=== PATIENT | female | born 1940 | race Caucasian/White ===

== ENCOUNTER 2016-12-11 06:30 | Day surgery (SDC) | payer MEDICARE, BC ==
--- NOTE | ~2016-12-11 | EGD ---
EGD REPORT [facility] [address] [place]. [address] NAME: MITZY PEREZ : [birth year] STATUS : REG [facility] [place] PAT#: [id number] AGE: 76 ADM/REG DATE : 12/11/16 MR#: [id number] REPORT SERV DATE: 12/11/16 DICTATED BY: SANJAY CATES DATE: 12/11/16 REPORT STATUS : Draft TRANSCRIBED BY: [employer] DATE: 12/11/16 [facility] Patient Name: Mitzy Perez Date of : 1940 Attending MD: SANJAY CATES MD Procedure Date No Time: 12/11/2016 Procedure: Colonoscopy Indications: Clinically significant diarrhea of unexplained origin, Rectal bleeding, FH of Colonic Polyps - 1st degree relative Referring MD: HARPER MALONEY Medicines: as per anesthesia Complications: No immediate complications. Procedure: Pre-Anesthesia Assessment: - ASA Grade Assessment: II - A patient with mild systemic disease. After I obtained informed consent, the scope was passed under direct vision. Throughout the procedure, the patient's blood pressure, pulse, and oxygen saturations were monitored continuously. The PCF [id number] was introduced through the anus and advanced to the cecum, identified by appendiceal orifice and ileocecal valve. The colonoscopy was performed without difficulty. The patient tolerated the procedure. The quality of the bowel preparation was adequate to identify polyps. Findings: The perianal and digital rectal examinations were normal. Multiple small and large-mouthed diverticula were found in the sigmoid colon, in the descending colon, in the transverse colon and in the ascending colon. Internal hemorrhoids were found during endoscopy and were moderate. Four biopsies were obtained in the rectum and in the ascending colon with cold forceps for histology. Impression: - Diverticulosis in the sigmoid colon, in the descending colon, in the transverse colon and in the ascending colon. - Internal hemorrhoids. - Four biopsies were obtained in the rectum and in the ascending colon. Recommendation: - Await pathology results. Procedure Code(s): --- Professional --- EGD REPORT [facility] [address] [place]. [address] NAME: MITZY PEREZ : [birth year] STATUS : REG [facility]#: [id number] AGE: 76 ADM/REG DATE : 12/11/16 MR#: [id number] REPORT SERV DATE: 12/11/16 DICTATED BY: SANJAY CATES. DATE: 12/11/16 REPORT STATUS : Draft TRANSCRIBED BY: [employer] DATE: 12/11/16 47330, Colonoscopy, flexible, proximal to splenic flexure; with biopsy, single or multiple Diagnosis Code(s): --- Professional --- K64.8, Other hemorrhoids K57.30, Diverticulosis of large intestine without perforation or abscess without bleeding R19.7, Diarrhea, unspecified K62.5, Hemorrhage of anus and rectum Z83.71, Family history of colonic polyps CPT copyright 2013 [employer]. All rights reserved. The codes documented in this report are preliminary and upon certified medical coder review may be revised to meet current compliance requirements. SANJAY CATES MD 12/11/2016 10:08 AM This report has been signed electronically. Number of Addenda: 0 Note Initiated On: 12/11/2016 9:10 AM Scope Withdrawal Time 0 hours 11 minutes 14 seconds [address] [facility] [address] [place] [address]
--- NOTE | ~2016-12-11 | EGD ---
EGD REPORT [facility] [address] [place] [address] NAME: MITZY PEREZ : [birth year] STATUS : [place] [facility] PAT#: [id number] AGE: 76 ADM/REG DATE : 12/11/16 MR#: [id number] REPORT SERV DATE: 12/11/16 DICTATED BY: SANJAY CATES DATE: 12/11/16 REPORT STATUS : Draft TRANSCRIBED BY: [employer] DATE: 12/11/16 [facility] Patient Name: Mitzy Perez Date of : 1940 Attending MD: SANJAY CATES MD Procedure Date No Time: 12/11/2016 Procedure: Upper GI endoscopy Indications: Dysphagia, Heartburn, Suspected esophageal reflux, Diarrhea Referring MD: HARPER MALONEY Medicines: as per anesthesia Complications: No immediate complications. Procedure: Pre-Anesthesia Assessment: - ASA Grade Assessment: II - A patient with mild systemic disease. After obtaining informed consent, the endoscope was passed under direct vision. Throughout the procedure, the patient's blood pressure, pulse, and oxygen saturations were monitored continuously. The GIF H190 [id number] was introduced through the mouth, and advanced to the third part of duodenum. The upper GI endoscopy was accomplished without difficulty. The patient tolerated the procedure. Findings: A mild Schatzki ring (acquired) was found at the gastroesophageal junction. The scope was withdrawn. Dilation was performed with a Santos dilator with no resistance at 44 Fr. A small hiatus hernia was present. The examined duodenum was normal. Biopsies were taken with a cold forceps for histology. Impression: - Mild Schatzki ring. Dilated. - Hiatus hernia. - Normal examined duodenum. Biopsied. Recommendation: - Await pathology results. - Follow an antireflux regimen. - Continue present medications. Procedure Code(s): --- Professional --- 82471, Esophagogastroduodenoscopy, flexible, transoral; with biopsy, single or multiple 49059, Dilation of esophagus, by unguided sound or bougie, single or multiple passes EGD REPORT [facility] [address] [place]. [address] NAME: MITZY PEREZ : [birth year] STATUS : REG [facility]#: [id number] AGE: 76 ADM/REG DATE : 12/11/16 MR#: [id number] REPORT SERV DATE: 12/11/16 DICTATED BY: SANJAY CATES DATE: 12/11/16 REPORT STATUS : Draft TRANSCRIBED BY: [employer] DATE: 12/11/16 Diagnosis Code(s): --- Professional --- K22.2, Esophageal obstruction K44.9, Diaphragmatic hernia without obstruction or gangrene R13.10, Dysphagia, unspecified R12, Heartburn R19.7, Diarrhea, unspecified CPT copyright 2013 [employer]. All rights reserved. The codes documented in this report are preliminary and upon architectural design lecturer review may be revised to meet current compliance requirements. SANJAY CATES MD 12/11/2016 9:39 AM This report has been signed electronically. Number of Addenda: 0 Note Initiated On: 12/11/2016 9:09 AM Scope Withdrawal Time 0 hours 0 minutes 0 seconds [address] [place] [address]
[~2016-12-11 06:30] MED LIST: ACTOS45 PO; ASAB PO; CALTRA600D PO; DYAZIDE PO; FISH OIL PO; GLUCOPHXR PO; JANUVIA100 MG PO; LANTUSCART SC; LOPID6 PO; MOEXIPRIL 15 MG PO; MULTIVITAMI1 PO; PRILOSEC OTC20 MG PO; VERELANPM2 PO; VITAMIN B-121000 MC1 SL; ZOCOR40 PO
== END 2016-12-11 23:59 | disposition home or self-care (01) ==
LOC: DMU 06:30
PROVIDERS: Internal Medicine Gastroenterology
PROC: 0DB98ZX Excision of Duodenum, Via Natural or Artificial Opening Endoscopic, Diagnostic (ICD-10-PCS; 2016-12-11)
PROC: 0DBP8ZX Excision of Rectum, Via Natural or Artificial Opening Endoscopic, Diagnostic (ICD-10-PCS; principal; 2016-12-11 08:30)
PROC: 0DBK8ZX Excision of Ascending Colon, Via Natural or Artificial Opening Endoscopic, Diagnostic (ICD-10-PCS; 2016-12-11 08:30)
PROC: 0D747ZZ Dilation of Esophagogastric Junction, Via Natural or Artificial Opening (ICD-10-PCS; 2016-12-11 08:30)
DX: K57.30 Diverticulosis of large intestine without perforation or abscess without bleeding (principal); K64.8 Other hemorrhoids; K22.2 Esophageal obstruction; K44.9 Diaphragmatic hernia without obstruction or gangrene; I10 Essential (primary) hypertension; E11.9 Type 2 diabetes mellitus without complications; Z88.0 Allergy status to penicillin; Z83.71 Family history of colonic polyps; Z79.82 Long term (current) use of aspirin; Z79.4 Long term (current) use of insulin; Z79.84 Long term (current) use of oral hypoglycemic drugs; Z79.899 Other long term (current) drug therapy
CPT/HCPCS: 82962; 88305